=== PATIENT | male | born 1940 | race Caucasian/White ===

== ENCOUNTER 2025-06-03 16:18 | Emergency (ER) | payer MEDICARE, SELFPAY ==
--- OUTSIDE RECORDS SUMMARY | 2025-05-22 08:30 | XMS_ITS | Encounter Summary ---
Author Organization [facility] Address [address] [address] Phone Care Team Providers Care Metalizing Machine Operator Automatic Name Role Phone Star Betancourt MD Primary Care Provider [phone] Reason for Visit * Reason Comments Follow-up Encounter Details Date Type Department Care Team (Latest Contact Info) Description 05/22/2025 8:30 AM PUNCH MOLDER Office Visit [facility] [address] [place] [address] Adelso Mack MD [address] [place] [address] Chronic kidney disease, stage 4 (severe) (HCC) (Primary Dx); Secondary hyperparathyroidism of renal origin (HCC); 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); Hyperkalemia; Anemia in chronic kidney disease; Localized edema; Hypertensive chronic kidney disease, benign, 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, or unspecified Social History Tobacco Use Types Packs/Day Years Used Date Smoking Tobacco: Never Smokeless Tobacco: Never Alcohol Use Standard Drinks/Week Comments Not Currently 0 (1 standard drink = 0.6 oz pur e alcohol) Sex and Gender Information Value Date Recorded Sex Assigned at Not on file Legal Sex Male 2:00 PM EDT Gender Identity Not on file Sexual Orientation Not on file documented as of this encounter Last Filed Vital Signs Vital Sign Reading Time Taken Comments Blood Pressure 124/60 05/22/2025 8:16 AM PUNCH MOLDER Pulse 55 05/22/2025 8:16 AM PUNCH MOLDER Temperature - - Respiratory Rate - - Oxygen Saturation 97% 05/22/2025 8:16 AM PUNCH MOLDER Inhaled Oxygen Concentration - - Weight 89.8 kg (198 lb) 05/22/2025 8:16 AM PUNCH MOLDER Height 165.4 cm (5' 5.12) 05/22/2025 8:16 AM CS T Body Mass Index 32.83 05/22/2025 8:16 AM PUNCH MOLDER documented in this encounter Patient Instructions * Patient Instructions* Case Staples - 05/22/2025 8:30 AM PUNCH MOLDER It was very nice to see you again today. Your kidney function continues to do well and is very stable. 1. Try Lamisil cream (terbinafine) to apply to your feet on a daily basis to see if this may help manage the dryness. 2. I will be back in the [facility] on June 26. documented in this encounter Progress Notes * Adelso Mack MD - 05/22/2025 8:30 AM CST Images from the original note were not included. Patient: Anuel Delgado Date of : 1940 Chart: [id number] PCP: Star Betancourt MD Date of Service: 05/22/2025 Chief Complaint: Anuel Delgado returns in follow-up for CKD stage IV Subjective: Patient returns in follow-up of the above. He was last seen by me in November 2024. He was doing well atthat time and was not experiencing any wounds in his lower extremities. With weight at that time at203 pounds. Underwent echocardiogram in February 2025 with EF of 60-65% with aortic valve calcified with mild stenosis and mild regurgitation but no changes from January 2024 study. On 07 May underwent cystoscopy with TURBT. Biopsy showed noninvasive papillary urothelial carcinoma, high-grade with no involvement of the muscularis propria or in situ. 1 cm tumor seen along thedome of the bladder. Laboratory work April 2025: Sodium 141 Potassium 5.3 Bicarbonate 25 Glucose 219 Calcium 8.6 Creatinine 2.17, eGFR 29 mL/min Hemoglobin 10.1 Hemoglobin A1c 6.8 He reports doing well overall. No recent illnesses or hospitalizations. Tolerating current medications nicely. Has asymmetric, excessive dryness on 1 foot compared to the other. This has been refractory to moisturizers that have been applied. No open wounds or ulcers at this time. Assessment & Plan Problem List Chronic kidney disease, stage 4 (severe) (HCC) - Primary (Chronic) Overview Baseline creatinine in the high ones-twos range. GFR remained stable. Great fluctuation with creatinine between 2015-present. Longstanding, documented albuminuria, first noted in 2011 at 48 mg/g withmost recent value at 125 mg/g from 2017. Anatomically renal ultrasound performed in February 2017 with right kidney at 9.1 cm and left kidney 10.4 cm with absence of hydronephrosis. 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 Historically highly fluctuating GFR based on illnesses. Current Assessment & Plan Stable. eGFR stable overall. Based on compromised GFR, advanced age, hyperdensity for hyperkalemia,etc. he is not a appropriate candidate for RAAS inhibitors, MRA, or SGLT2 inhibitor in my opinion. Continue current cares. Follow-up in 6 months. Relevant Orders Renal function panel Hemoglobin Neoplasm of bladder Overview Per CT scan on 10/20/2022 measured at 4.2 cm per interpreting radiologist. Accompanied red appearing urine and confirmed with a fair amount of blood on urinalysis. 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 Completing intravesical BCG November 2023. Surveillance cystoscopy every 3 months. Current Assessment & Plan Stable. Status post TURBT in April 2025. Surveillance cystoscopy every 3 months afterwards. Ongoing for management and surveillance per urology. Hyperkalemia (Chronic) Overview Historically her high end of normal potassium values. Current Assessment & Plan Stable. Most recent potassium at 5.3. This was also with associated glucose level of 219 which may have contributed somewhat. Follow only. Secondary hyperparathyroidism of renal origin (HCC) (Chronic) Current Assessment & Plan Stable. Calcium in fine shape. Phosphorus will attempt to be obtained at the next visit. Localized edema Current Assessment & Plan Stable. Chronic lower extremity lymphedema, primarily focused around each ankle. No changes. Anemia in chronic kidney disease (Chronic) Current Assessment & Plan Stable. Hemoglobin unchanged in the 10 range. Not a candidate at this time for SHANNA. Hypertensive chronic kidney disease, benign, 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, or unspecified Current Assessment & Plan Stable. Well-managed on current medication regimen. I would not treat any more aggressively in thispatient with frail physiology and greatly advanced age. Return in about 6 months (around 11/19/2025) for Recheck. Adelso Mack MD [facility] The following portions of the patient's chart were reviewed in this encounter and updated as appropriate: Tobacco Allergies Meds Med Hx Surg Hx Fam Hx Review of Systems Cardiovascular: Positive for leg swelling. All other systems reviewed and are negative. 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, or unspecified History of Present Illness Past Medical History: Diagnosis Date Anemia Chronic kidney disease Coronary atherosclerosis of unspecified type of vessel, [place] or graft Diabetes mellitus with renal manifestations, type II or unspecified type, not stated as uncontrolled (HCC) Diabetes mellitus without mention of complication, type II or unspecified type, not stated as uncontrolled (HCC) Essential hypertension Osteoarthrosis, unspecified whether generalized or localized, involving unspecified site Other and unspecified hyperlipidemia Other malignant neoplasm of unspecified site (HCC) Sleep apnea Past Surgical History: Procedure Laterality Date AMPUTATION FOOT / TOE Right BLADDER SURGERY 05/08/2025 Family History Problem Relation Age of Onset Diabetes Mother Cancer Mother Diabetes Father Cancer Father Diabetes Sister Social History Tobacco Use Smoking status: Never Smokeless tobacco: Never Vaping Use Vaping status: Never Used Substance Use Topics Alcohol use: Not Currently Drug use: Never Taking? Provider ascorbic acid (VITAMIN C) 500 MG tablet Carrie Márquez MD Take 500 mg by mouth 1 (one) time each day aspirin (ST KARLA) 81 MG EC tablet Carrie Márquez MD Take 81 mg by mouth once daily with a meal. DO NOT CRUSH OR CHEW. atorvastatin (LIPITOR) 40 MG tablet Carrie Márquez MD Take 40 mg by mouth every night cholecalciferol (VITAMIN D-3) 25 MCG (1000 UT) capsule Carrie Márquez MD Take 1,000 Units by mouth 1 (one) time each day fluticasone (FLONASE) 50 MCG/ACT nasal spray Carrie Márquez MD Administer 2 sprays into each nostril 1 (one) time each day insulin glargine (LANTUS) 100 UNIT/ML injection Carrie Márquez MD Inject 38 Units under the skin every night metoprolol tartrate 25 MG tablet Carrie Márquez MD Take 25 mg by mouth in the morning and 25 mg in the evening. nitroglycerin (NITROSTAT) 0.4 MG SL tablet Carrie Márquez MD Place 1 tablet under the tongue every 5 minutes if needed for Chest Pain. May repeat for total of 3doses, may cause dizziness sildenafil (VIAGRA) 100 MG tablet Carrie Márquez MD TAKE ONE TABLET BY MOUTH EVERY DAY NEEDED FOR ERECTILE DYSFUNCTION; TAKE 30 MIN TO 4 HOURS BEFORE SEXUAL ACTIVITY; MAX 100MG/24HR Vitamin E 180 MG (400 UNIT) capsule Carrie Márquez MD Take 400 Units by mouth in the morning. Allergies Allergen Reactions Oxycodone Nausea And Vomiting and Other (see comments) Hiccups Other Reaction(s): Not available Sulfa Antibiotics Physical Exam BP 124/60 (BP Location: Right upper arm, Patient Position: Sitting, BP Cuff Size: Adult) Pulse 55 Ht 5' 5.12 (1.654 m) Wt 198 lb (89.8 kg) SpO2 97% BMI 32.83 kg/m?? Vitals reviewed. Cardiovascular: Normal rate and regular rhythm. He exhibits edema (1+, chronic edema in the right lower extremity, left lower extremity with trace edema (both chronic conditions)). Pulmonary/Chest: Effort normal and breath sounds normal. Abdominal: Soft. Bowel sounds are normal. Musculoskeletal: Normal range of motion. Skin: Skin is warm and dry. Chemistry and Bone Mineral Lab Units 05/14/25 0831 05/14/25 0734 04/24/25 0000 11/27/24 0800 11/27/24 0705 06/12/24 0811 04/25/24 0759 02/28/24 1217 02/12/24 0549 02/10/24 1056 02/09/24 0548 02/08/24 1712 10/25/23 0757 10/25/23 0000 08/12/23 1035 SODIUM mmol/L -- 141 141 -- 140 137 -- 138 138 < > 137 138 143 < > 142 POTASSIUM mmol/L -- 5.4* 5.3 -- 4.8 5.0 -- 5.4* 4.0 < > 4.0 4.7 5.2* < > 4.9 CHLORIDE mmol/L -- 110 108 -- 107 105 -- 103 -- -- -- 105 108* < > 108* CO2 mmol/L -- 23 25 -- 24 26 -- 22 23 < > -- 23 24 < > 24 ANION GAP -- -- -- -- -- -- -- 13 -- -- -- 10 11 -- 10 MAGNESIUM mg/dL -- -- -- -- -- -- -- -- -- -- 2.0 -- -- -- -- CALCIUM mg/dL -- 8.2* 8.6 -- 8.5* 8.5* -- 8.9 -- -- -- 8.9 8.9 < > 8.9 PHOSPHORUS mg/dL -- -- -- -- 4.4* 3.9 -- -- -- -- -- -- -- -- -- GLUCOSE mg/dL -- 145* 219* -- 156* 278* -- 207* -- -- -- 220* 99 < > 105* ALBUMIN g/dL -- -- -- -- 3.7 3.5* -- -- -- -- -- -- -- -- -- BUN mg/dL -- 42* 39* -- 41* 44* -- 46* -- -- -- 35* 33* < > 45* CREATININE mg/dL -- 2.49* 2.17* -- 2.25* 2.32* -- 2.31* 2.38* < > 2.21* 2.05* 1.93* < >2.06* EGFR mL/min/1.73m2 -- 25* 29* -- 28* 27* -- 27* 26* < > 29* 31* 34* < > 31* HEMOGLOBIN A1C % OF TOTAL HGB 6.8* -- -- 7.5* -- -- 7.2* 8.5* -- -- -- -- 7.4* -- -- < > = values in this interval not displayed. CBC and Iron Studies Lab Units 05/14/25 0734 04/24/25 0000 11/27/24 0705 06/12/24 0811 02/28/24 1217 02/12/24 0549 02/11/24 0552 02/10/24 1056 02/09/24 0548 HEMOGLOBIN g/dL 9.7* 10.1* 10.2* 10.4* 10.1* 10.3* 10.6* 9.8* 9.2* MCV fL -- 95.4 -- -- 93 92 92 94 95 Urine Lab Units 10/25/23 0000 PROT/CREAT RATIO UR 0.8* I have performed a complete review of pertinent lab results. 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 Well-managed on current medication regimen. I would not treat any more aggressively in thispatient with frail physiology and greatly advanced age. * Assessment & Plan Note - Adelso Mack MD - 05/22/2025 8:45 AM CSTAssociated Problem(s): Localized edema Stable. Chronic lower extremity lymphedema, primarily focused around each ankle. No changes. * Assessment & Plan Note - Adelso Mack MD - 05/21/2025 4:43 PM CSTAssociated Problem(s): Anemia in chronic kidney disease Stable. Hemoglobin unchanged in the 10 range. Not a candidate at this time for SHANNA. * Assessment & Plan Note - Adelso Mack MD - 05/21/2025 4:43 PM CSTAssociated Problem(s): Chronic kidney disease, stage 4 (severe) ([facility]) Stable. eGFR stable overall. Based on compromised GFR, advanced age, hyperdensity for hyperkalemia,etc. he is not a appropriate candidate for RAAS inhibitors, MRA, or SGLT2 inhibitor in my opinion. Continue current cares. Follow-up in 6 months. * Assessment & Plan Note - Adelso Mack MD - 05/21/2025 4:42 PM CSTAssociated Problem(s): Hyperkalemia Stable. Most recent potassium at 5.3. This was also with associated glucose level of 219 which may have contributed somewhat. Follow only. * Assessment & Plan Note - Adelso Mack MD - 05/21/2025 4:41 PM CSTAssociated Problem(s): Neoplasm of bladder Stable. Status post TURBT in April 2025. Surveillance cystoscopy every 3 months afterwards. Ongoing for management and surveillance per urology. * Assessment & Plan Note - Adelso Mack MD - 05/21/2025 4:41 PM CSTAssociated Problem(s): Secondary hyperparathyroidism of renal origin (HCC) Stable. Calcium in fine shape. Phosphorus will attempt to be obtained at the next visit. 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
--- OUTSIDE RECORDS SUMMARY | 2025-06-03 16:20 | XMS_ITS | Clinical Summary ---
Author Organization [facility] [place] [place] Address [address] [place] [address] Phone Care Team Providers Care Cancer Registry Coordinator Name Role Phone Star Betancourt MD Primary Care Provider [phone] Allergies Active Allergy Reactions Criticality Noted Date Comments Oxycodone Nausea And Vomiting,Other (see comments) 11/02/2017 Hiccups Other Reaction(s): Not available Sulfa Antibiotics 07/15/2007 Medications insulin glargine (LANTUS) 100 UNIT/ML injection Inject 38 Units under the skin every night 4 Active sildenafil (VIAGRA) 100 MG tablet TAKE ONE TABLET BY MOUTH EVERY DAY NEEDED FOR ERECTILE DYSFUNCTION; TAKE 30 MIN TO 4 HOURS BEFORE SEXUAL ACTIVITY; MAX 100MG/24HR Active Vitamin E 180 MG (400 UNIT) capsule Take 400 Units by mouth in the morning. 3 Active nitroglycerin (NITROSTAT) 0.[address] 1 tablet under the tongue every 5 minutes if needed for Chest Pain. May repeat for total of 3 doses, may cause dizziness 0 Active atorvastatin (LIPITOR) 40 MG tablet Take 40 mg by mouth every night 4 Active ascorbic acid (VITAMIN C) 500 MG tablet Take 500 mg by mouth 1 (one) time each day 3 Active aspirin (ST KARLA) 81 MG EC tablet Take 81 mg by mouth once daily with a meal. DO NOT CRUSH OR CHEW. 8 Active fluticasone (FLONASE) 50 MCG/ACT nasal spray Administer 2 sprays into each nostril 1 (one) time each day 3 Active cholecalcifero l (VITAMIN D-3) 25 MCG (1000 UT) capsule Take 1,000 Units by mouth 1 (one) time each day Active metoprolol tartrate 25 MG tablet Take 25 mg by mouth in the morning and 25 mg in the evening. 5 Active Insulin Lispro, 1 Unit Dial, 100 UNIT/ML solution pen-injector 20 units subcutaneous at start of breakfast meal AND 20 units with evening meal 4 025 Discontin ued(Med List Maintenan ce) metoprolol tartrate (LOPRESSOR) 50 MG tablet Take 25 mg by mouth in the morning and 25 mg in the evening. 3 025 Discontin ued(Med List Maintenan ce) Belmont-3 Fatty Acids (Super Belmont 3 EPA/DHA) 1000 MG capsule Take by mouth. 2 025 Discontin ued(Med List Maintenan ce) albuterol HFA (PROVENTIL HFA;VENTOLIN HFA) 108 (90 Base) MCG/ACT inhaler Inhale 1-2 puffs every 4 (four) hours if needed for wheezing 3 025 Discontin ued(Med List Maintenan ce) Active Problems Problem Noted Date Diagnosed Date Chronic kidney disease, stage 4 (severe) 024 Overview (11/28/2023): Baseline creatinine in the high ones-twos range. GFR remained stable. Great fluctuation with creatinine between 2015-present. Longstanding, documented albuminuria, first noted in 2011 at 48 mg/g with most recent value at 125 mg/g from 2017. Anatomically renal ultrasound performed in February 2017 with right kidney at 9.1 cm and left kidney 10.4 cm with absence of hydronephrosis. 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 Historically highly fluctuating GFR based on illnesses. Assessment & Plan (05/21/2025 4:43 PM ENTREPRENEURSHIP PROGRAM DIRECTOR): Stable. eGFR stable overall. Based on compromised GFR, advanced age, hyperdensity for hyperkalemia, etc. he is not a appropriate candidate for RAAS inhibitors, MRA, or SGLT2 inhibitor in my opinion. Continue current cares. Follow-up in 6 months. Assessment & Plan (12/05/2024 4:00 PM CDT): Stable. GFR remains at his baseline. No electrolyte abnormalities of concern. No evidence of uremic signs or symptoms. Unsafe for RAAS inhibitors, MRA, and SGLT2 inhibitor in my opinion. Continue current cares as we have before. Tentative follow-up in 6 months. Assessment & Plan (06/20/2024 8:53 AM ENTREPRENEURSHIP PROGRAM DIRECTOR): Stable overall. See historical GFR/creatinine values as described above. As noted in the hypertension section, patient is not a safe candidate for RAAS inhibitors or MRA. In addition, based on his clinically proven peripheral vascular disease and poor wound healing, I would refrain from the administration of SGLT2 inhibitor. No indications for preparation for ESRD at this time. No volume related issues. Continue current cares. Will plan to see him again in 6 months. Assessment & Plan (11/29/2023 2:48 PM CDT): Stable GFR. Continue current cares. GFR is too compromised to provide RAAS inhibitors as well as sodium glucose transporter-2 inhibitor class of medications in my opinion. Hyperkalemia 11/28/2023 Overview (11/28/2023): Historically her high end of normal potassium values. Assessment & Plan (05/21/2025 4:42 PM ENTREPRENEURSHIP PROGRAM DIRECTOR): Stable. Most recent potassium at 5.3. This was also with associated glucose level of 219 which may have contributed somewhat. Follow only. Assessment & Plan (12/05/2024 4:01 PM CDT): Stable. Most recent potassium value within normal limits at 4.8. Assessment & Plan (06/20/2024 8:52 AM ENTREPRENEURSHIP PROGRAM DIRECTOR): Stable. See comments in overview above. If becomes problematic, we can certainly consider the addition of low-dose loop diuretic. Keep in mind that the assay for this visit from 12 June had a glucose value of 278 which also impacted the potassium level. Assessment & Plan (11/29/2023 2:47 PM CDT): Stable overall. Low threshold to start low-dose diuretic if this becomes problematic. Secondary hyperparathyroidism of renal origin Assessment & Plan (05/21/2025 4:41 PM ENTREPRENEURSHIP PROGRAM DIRECTOR): Stable. Calcium in fine shape. Phosphorus will attempt to be obtained at the next visit. Assessment & Plan (12/05/2024 4:01 PM CDT): Stable. Both calcium and phosphorus within normal limits. Follow only for the time being. No indications for phosphorus binding at this time. Assessment & Plan (06/20/2024 8:53 AM ENTREPRENEURSHIP PROGRAM DIRECTOR): Stable. Well-managed. Calcium levels are in fine condition as are phosphorus levels. Assessment & Plan (11/29/2023 2:48 PM CDT): Calcium in fine shape. Localized edema 11/28/2023 Assessment & Plan (05/22/2025 8:45 AM ENTREPRENEURSHIP PROGRAM DIRECTOR): Stable. Chronic lower extremity lymphedema, primarily focused around each ankle. No changes. Assessment & Plan (12/07/2024 9:43 AM CDT): Stable. Currently well-managed and at chronic levels. Assessment & Plan (06/20/2024 8:49 AM ENTREPRENEURSHIP PROGRAM DIRECTOR): Stable. Well-controlled edema with right greater than left distribution. Edema typically absent when he awakens in the morning. No indications for initiation of loop diuretic at this time to manage this. Assessment & Plan (11/28/2023 8:55 PM CDT): When last seen edema was present and regulated well below each knee. Anemia in chronic kidney disease 11/28/2023 Assessment & Plan (05/21/2025 4:43 PM ENTREPRENEURSHIP PROGRAM DIRECTOR): Stable. Hemoglobin unchanged in the 10 range. Not a candidate at this time for SHANNA. Assessment & Plan (12/05/2024 4:01 PM CDT): Stable. Hemoglobin at 10.2. No indications for SHANNA at this point in time. Assessment & Plan (06/20/2024 8:51 AM ENTREPRENEURSHIP PROGRAM DIRECTOR): Stable. Hemoglobin unchanged in the tens range. No indications for SHANNA administration at this time. Assessment & Plan (11/29/2023 2:49 PM CDT): Hemoglobin value will be assessed at the next visit. Neoplasm of bladder 11/23/2022 Overview (05/22/2025): Per CT scan on 10/20/2022 measured at 4.2 cm per interpreting radiologist. Accompanied red appearing urine and confirmed with a fair amount of blood on urinalysis. 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 Completing intravesical BCG November 2023. Surveillance cystoscopy every 3 months. Assessment & Plan (05/22/2025 8:45 AM ENTREPRENEURSHIP PROGRAM DIRECTOR): Stable. Status post TURBT in April 2025. Surveillance cystoscopy every 3 months afterwards. Ongoing for management and surveillance per urology. Assessment & Plan (12/05/2024 4:01 PM CDT): Stable. No recurrence of bladder cancer. Otherwise per urologist with screening cystoscopy. Assessment & Plan (06/20/2024 8:52 AM ENTREPRENEURSHIP PROGRAM DIRECTOR): Stable. Patient is cancer free according to a very recent cystoscopy. Otherwise per urology. Assessment & Plan (11/29/2023 2:48 PM CDT): Completing course of intravesical BCG. Per urology. 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 Well-managed on current medication regimen. I would not treat any more aggressively in this patient with frail physiology and greatly advanced age. Assessment & Plan (12/07/2024 9:42 AM CDT): Stable. Excellent management on current medication regimen. Continue. Assessment & Plan (06/20/2024 8:50 AM ENTREPRENEURSHIP PROGRAM DIRECTOR): Stable. Well-controlled. Based on patient's frail physiology, compromised GFR, propensity for hyperkalemia, etc. I would not administer RAAS inhibitors or MRA's in this patient. Continue current medications as ordered. Assessment & Plan (11/29/2023 2:47 PM CDT): Fine shape on current medication regimen. I would not be any more aggressive with his blood pressure. 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, or unspecified 05/03/2025 Results Follow-Up [facility] [address] [place] [id number] Yesenia Madden, JONE 05/03/2025 Orders Only [facility] [address] [place] [phone] [facility] Chronic kidney disease, stage 4 (severe) (HCC) from Last 3 Months Immunizations Immunization Administration Dates Next Due Influenza Vaccine, Quadrival ent, Adjuvanted 04/22/2023,04/21/2022,05/14/2021,2019 Influenza, Trivalent, Adjuvanted 05/14/2025,02/2024 Pfizer SARS-COV-2 05/14/2021,10/02/2020,09/11/19 21 Pfizer SARS-CoV-2 Bivalent 3 0 mcg/0.3 mL 04/21/2022 Pneumococcal Conjugate Pcv 20 04/22/2023 Rsv, Bivalent, Protein Subun it Rsvpref, Diluent Reconstitutd 08/04/2023 Tdap 01/22/2023,12/15/2011 Family History Medical History Relation Comments Cancer Father Diabetes Father Cancer Mother Diabetes Mother Diabetes Sister Relation Status Comments Father Mother Sister Social History Tobacco Use Types Packs/Day Years Used Date Smoking Tobacco: Never Smokeless Tobacco: Never Tobacco Cessation:Counseling Given: Not Answered Alcohol Use Standard Drinks/Week Comments Not Currently 0 (1 standard drink = 0.6 oz pur e alcohol) Sex and Gender Information Value Date Recorded Sex Assigned at Not on file Legal Sex Male 2:00 PM EDT Gender Identity Not on file Sexual Orientation Not on file Last Filed Vital Signs Vital Sign Reading Time Taken Comments Blood Pressure 124/60 05/22/2025 8:16 AM ENTREPRENEURSHIP PROGRAM DIRECTOR Pulse 55 05/22/2025 8:16 AM ENTREPRENEURSHIP PROGRAM DIRECTOR Temperature - - Respiratory Rate - - Oxygen Saturation 97% 05/22/2025 8:16 AM ENTREPRENEURSHIP PROGRAM DIRECTOR Inhaled Oxygen Concentration - - Weight 89.8 kg (198 lb) 05/22/2025 8:16 AM ENTREPRENEURSHIP PROGRAM DIRECTOR Height 165.4 cm (5' 5.12) 05/22/2025 8:16 AM CS T Body Mass Index 32.83 05/22/2025 8:16 AM ENTREPRENEURSHIP PROGRAM DIRECTOR Plan of Treatment Health Maintenance Due Date Last Done Comments Diabetes: Ophthalmology Exam 10/25/2023 Diabetes: Pedal Pulse Checked 10/25/2023 Diabetes: Sensory Foot Exam 10/25/2023 Diabetes: Visual Foot Exam 10/25/2023 Diabetes: Hemoglobin A1C 08/14/2025 025, 11/27/2024, 04/25/2024, Additional history exists Pneumococcal Vaccine: 50+ Years Completed 04/22/2023 Influenza Vaccine Completed 05/14/2025, , 04/22/2023, Additional history exists Hepatitis B Vaccine Aged Out No longe r eligible based on patient's age to complete this topic Procedures Procedure Name Priority Date/Time Associated Diagnosis Comments HEMOGLOBIN Routine 05/14/2025 7:34 AM CDT BASIC METABOLIC PANEL Routine 05/14/2025 7:34 AM CDT HEMOGLOBIN Routine 04/24/2025 Chronic kidney disease, stage 4 (severe) (HCC) BASIC METABOLIC PANEL Routine 04/24/2025 Chronic kidney disease, stage 4 (severe) (HCC) from Last 3 Months Results * (ABNORMAL) Hemoglobin (05/14/2025 7:34 AM CDT) Only the most recent of2 resultswithin the time period is included. Hemoglobin 9.7(L) 13.2 - 17.1 g/dL [facility] 05/14/2025 7:34 AM CDT 05/14/2025 7:34 AM CDT Narrative Resulting Agency Comment Performing Organization Information: Site ID: CB Name: [facility] Address: [address] [place] [phone] Director: Israel Waters Adelso Mack MD LAB BLOOD ORDERABLES Final Resul t [facility] [address] [place] [phone] * (ABNORMAL) Basic Metabolic Panel (05/14/2025 7:34 AM CDT) Only the most recent of2 resultswithin the time period is included. Glucose 145(H) 65 - 99 mg/dL [facility] Comment: Fasting reference interval For someone without known diabetes, a glucose value >125 mg/dL indicates that they may have diabetes and this should be confirmed with a follow-up test. BUN 42(H) 7 - 25 mg/dL [facility] Creatinine 2.49(H) 0.70 - 1.22 mg/dL [facility] eGFR CKD-EPI CR 2020 25(L) > OR = 60 mL/min/1.7 3m2 [facility] BUN/Creatinine Ratio 17 6 - 22 (calc) [facility] Sodium 141 135 - 146 mmol/L [facility] Potassium 5.4(H) 3.5 - 5.3 mmol/L [facility] Chloride 110 98 - 110 mmol/L [facility] Bicarbonate (CO2) 23 20 - 32 mmol/L [facility] Calcium 8.2(L) 8.6 - 10.3 mg/dL [facility] 05/14/2025 7:34 AM CDT 05/14/2025 7:34 AM CDT Narrative Resulting Agency Comment Performing Organization Information: Site ID: CB Name: [facility] Address: [address] [place] [phone] Director: Israel Waters Adelso Mack MD LAB BLOOD ORDERABLES Final Resul t [facility] [address] [place] [phone] from Last 3 Months Insurance [facility] Medicare Care Teams Cancer Registry Coordinator Relationship Specialty Start Date End Date Star Betancourt MD [address] [place] [address] PCP - General Family Medicine 10/26/23
--- OUTSIDE RECORDS SUMMARY | 2025-06-03 16:20 | XMS_ITS | Encounter Summary ---
Author Organization [facility] Address [address] [place] [address] Phone Care Team Providers Care Program Paraprofessional Name Role Phone Star Betancourt MD Primary Care Provider Encounter Details Date Type Department Care Team (Late st Contact Info) Description 11/23/2024 Orders Only [facility] [place] [address] Adelso Mack MD [address] [place] [address] Chronic kidney disease, stage 4 (severe) (HCC) Social History Tobacco Use Types Packs/Day Years [...] on file documented as of this encounter Plan of Treatment Not on file documented as of this encounter Procedures Procedure Name Priority Date/Time Associated Diagnosis Comments HEMOGLOBIN Routine 11/27/2024 7:05 AM CDT Chronic kidney disease, stage 4 (severe) (HCC) RENAL FUNCTION PANEL Routine 11/27/2024 7:05 AM CDT Chronic kidney disease, stage 4 (severe) (HCC) documented in this encounter Results * (ABNORMAL) Hemoglobin (11/27/2024 7:05 AM CDT) Hemoglobin 10.2(L) 13.2 - 17.1 g/dL [facility] Blood specimen (specimen) Venous blood / Unknown 11/27/2024 7:05 AM CDT 11/27/2024 7:05 AM CDT Narrative Resulting Agency Comment Performing Organization Information: Site ID: CB Name: [facility] Address: [address] [place] [phone] Director: Israel Waters Adelso Mack MD LAB BLOOD ORDERABLES Final Resul t [facility] [address] [place] [phone] * (ABNORMAL) Renal function panel (11/27/2024 7:05 AM CDT) Glucose 156(H) 65 - 99 mg/dL [facility] Comment: Fasting reference interval For someone without known diabetes, a glucose value >125 mg/dL indicates that they may have diabetes and this should be confirmed with a follow-up test. BUN 41(H) 7 - 25 mg/dL [facility] Creatinine 2.25(H) 0.70 - 1.22 mg/dL [facility] eGFR CKD-EPI CR 2020 28(L) > OR = 60 mL/min/1.7 3m2 [facility] BUN/Creatinine Ratio 18 6 - 22 (calc) [facility] Sodium 140 135 - 146 mmol/L [facility] Potassium 4.8 3.5 - 5.3 mmol/L [facility] Chloride 107 98 - 110 mmol/L [facility] Bicarbonate (CO2) 24 20 - 32 mmol/L [facility] Calcium 8.5(L) 8.6 - 10.3 mg/dL [facility] Phosphorus 4.4(H) 2.1 - 4.3 mg/dL [facility] Albumin 3.7 3.6 - 5.1 g/dL [facility] Blood specimen (specimen) Venous blood / Unknown 11/27/2024 7:05 AM CDT 11/27/2024 7:05 AM CDT Narrative Resulting Agency Comment Performing Organization Information: Site ID: CB Name: [facility] Address: [address] [place] [phone] Director: Israel Waters Adelso Mack MD LAB BLOOD ORDERABLES Final Resul t [facility] [address] [place] [phone] documented in this encounter Visit Diagnoses Diagnosis Chronic kidney disease, stage 4 (severe) (HCC) documented in this encounter Care Teams Program Paraprofessional Relationship Specialty Start Date End Date Star Betancourt MD [address] [place] [address] PCP - General Family Medicine 10/26/23 documented as of this encounter
--- OUTSIDE RECORDS SUMMARY | 2025-06-03 16:20 | XMS_ITS | Encounter Summary ---
Author Organization [facility] [place] Address [address] [place] [address] Phone Care Team Providers Care Linux Admin Engineer Name Role Phone Star Betancourt MD Primary Care Provider [phone] Encounter Details Date Type Department Care Team (Late st Contact Info) Description 05/03/2025 Orders Only [facility] [place] [address] [place] [phone] [facility] [address] [place] [address] Chronic kidney disease, stage 4 (severe) (HCC) [...] in this encounter Results * (ABNORMAL) Hemoglobin (05/14/2025 7:34 AM CDT) Hemoglobin 9.7(L) 13.2 - 17.1 g/dL [facility] 05/14/2025 7:34 AM CDT 05/14/2025 7:34 AM CDT Narrative Resulting Agency Comment Performing Organization Information: Site ID: CB Name: [facility] Address: [address] [place] [phone] Director: Israel Waters Adelso Mack MD LAB BLOOD ORDERABLES Final Resul t [facility] [address] [place] [phone] * (ABNORMAL) Basic Metabolic Panel (05/14/2025 7:34 AM CDT) Pathologist [facility] Glucose 145(H) 65 - 99 mg/dL [facility] Comment: Fasting reference interval For [...] Performing Organization Information: Site ID: CB Name: [facility] Address: [address] [place] [phone] Director: Israel Waters us Adelso Mack MD LAB BLOOD ORDERABLES Final Resul t Performing Organization Address [facility] de Phone Number [facility] [address] [place] [phone] * (ABNORMAL) Hemoglobin (04/24/2025) Hemoglobin 10.1(L) g/dL [facility] MCV 95.4 fL [facility] Blood Venous blood / Unknown 04/24/2025 us Adelso Mack MD LAB BLOOD ORDERABLES Final Resul t Performing Organization Address [facility] de Phone Number [facility] * (ABNORMAL) Basic metabolic panel (04/24/2025) Sodium 141 mEq/L [facility] Potassium 5.3 mEq/L [facility] Chloride 108 [facility] Carbon Dioxide 25 mmol/L [facility] Calcium 8.6 mg/dL [facility] BUN 39(H) mg/dL [facility] Creatinine 2.17(H) mg/dL [facility] Glucose 219(H) mg/dL [facility] eGFR 29(L) [facility] Anion Gap 8 [facility] Blood Venous blood / Unknown 04/24/2025 us Adelso Mack MD LAB BLOOD ORDERABLES Final Resul t Performing Organization Address [facility] Co de Phone Number [facility] documented in this encounter Visit Diagnoses Diagnosis Chronic kidney disease, stage 4 (severe) (HCC) documented in this encounter Care Teams Linux Admin Engineer Relationship Specialty Start Date End Date Star Betancourt MD [address] [place] [address] PCP - General Family Medicine 10/26/23 documented as of this encounter
--- OUTSIDE RECORDS SUMMARY | 2025-06-03 16:20 | XMS_ITS | Clinical Summary ---
Author Organization [facility] Address [address] [place] [address] Care Team Providers Care Customer Service Specialist Name Role Phone Star Betancourt MD Primary Care Provider Adelso Mack MD Unavailable [phone] [place] Unavailable Unavailable Allergies Active Allergy Reactions Criticality Noted Date Comments Oxycodone Nausea And Vomiting,*Unknown 11/02/2017 Hiccups Sulfa (Sulfonamide Antibiotics) 07/15/2007 Medications ASPIRIN 81 MG TAB, DELAYED RELEASE Take 81 mg by mouth at bedtime. DO NOT CRUSH OR CHEW. 0 03/02/20 08 Active ascorbic acid (VITAMIN C) 500 mg tablet Take 1 tablet by mouth once daily. 0 03/23/20 13 Active vitamin e 400 unit capsule Take 400 units by mouth once daily. 400 units = 180 mg vitamin E 0 03/23/20 13 Active CPAPIndications:O bstructive sleep apnea CPAP machine for home use at pressure: 5-17 CM H20 , Heated humidifier x 1, Humidifier chamber x 1, Full face mask with cushion x 1, Heated tubing x 1, Headgear x 1, Filters: Disposable x 1pk & Reusable x 1pk, Length of Need: 99 months, Frequency of use: Daily 1 Device 11 10/19/19 19 Active nitroglycerin (NITROSTAT) 0.4 mg sublingual tabletIndications :Abnormal stress test Place 1 tablet under the tongue every 5 minutes if needed for Chest Pain. May repeat for total of 3 doses, may cause dizziness 25 tablet 3 06/04/20 20 Active Blood-Glucose Meter (OneTouch Verio IQ Meter)Indications :Type 2 diabetes mellitus with complication, without long-term current use of insulin (HC) Dispense glucose meter, test strips and lancets covered by the patient insurance. Test 3 times daily. E11.9 NIDDM type II 1 Each 08/21/19 22 Active blood sugar diagnostic (OneTouch Verio test strips) stripIndications: Type 2 diabetes mellitus with complication, without long-term current use of insulin (HC) Test 3 times daily. Dispense item covered by pt ins. E11.9 NIDDM type II 300 Each 3 08/21/19 22 Active lancetsIndication s:Type 2 diabetes mellitus with complication, without long-term current use of insulin (HC) Test 3 times daily. Dispense item covered by pt ins. E11.9 NIDDM type II 300 Each 3 08/21/19 22 Active Xnhoo-3-[id number]-EPA-F jacoby Oil (Fish OiL) 1,000 mg (120 mg-180 mg) cap Take 1 Capsule by mouth once daily. 0 05/11/20 22 Active Insulin [place], Disposable, (Sabrina Pen Needle) 32 gauge x 5/32Indications: Diabetes mellitus type 2 with complications (HC) As directed. To use with insulin once daily 100 Each 3 06/16/20 22 Active cholecalciferol, Vitamin D3, 2,000 unit tablet Take 2,000 units by mouth once daily. Active FreeStyle Estephanie 2 ReaderIndications :Type 2 diabetes mellitus with complication, without long-term current use of insulin (HC) To be used to read blood sugars per tobacco educator's directions. 1 Each 11/04/19 23 Active FreeStyle Estephanie 2 SensorIndications :Type 2 diabetes mellitus with complication, without long-term current use of insulin (HC) To be used to read blood sugars per tobacco educator's directions. Change each sensor every 14 days 6 Each 4 11/04/19 23 Active albuterol HFA (PRO-AIR; VENTOLIN; PROVENTIL) 90 mcg/actuation inhalerIndication s:Wheezing Inhale 1-2 Puffs by mouth every 4 hours if needed for Wheezing. 1 Each 1 04/22/20 23 Active ferrous sulfate, 65 mg elemental, tablet Take 325 mg by mouth two times daily. 07/27/19 24 Active insulin aspart, U-100, (NOVOLOG FLEXPEN) 100 unit/mL (3 mL) penIndications:Ty pe 2 diabetes mellitus with complication, without long-term current use of insulin (HC) 15 units with breakfast and 20 units with supper 15 mL 3 02/28/20 24 Active insulin lispro, U-100, (HUMALOG KWIKPEN; ADMELOG SOLOSTAR) 100 unit/mL inpn penIndications:Ty pe 2 diabetes mellitus with complication, without long-term current use of insulin (HC) 15 units with breakfast and 20 units with supper Product desired: HUMALOG KWIKPEN 15 mL 1 03/03/20 24 Active ketoconazole 2 % creamIndications: Tinea pedis of both feet Apply topically to affected area(s) once daily. 30 g 04/19/20 24 Active atorvastatin 40 mg tabletIndications :Mixed hyperlipidemia Take 1 Tablet (40 mg) by mouth at bedtime. 90 Tablet 3 11/28/19 25 Active durable medical equipment (DME)Indications: Skin maceration,Follow -up examination after orthopedic surgery [phone] Squared Toe Post Op Shoe, Large 1 Each 03/01/20 25 Active blood sugar diagnostic (Blood Glucose Test) stripIndications: Diabetes mellitus type 2 with complications (HC) Test 3 times per day. 300 Each 3 03/11/20 25 Active blood-glucose meterIndications: Diabetes mellitus type 2 with complications (HC) Dispense meter covered by pts insurance. 1 Each 03/09/20 25 Active metoprolol tartrate (LOPRESSOR) 25 mg tabletIndications :HTN (hypertension) Take 1 Tablet (25 mg) by mouth two times daily. 180 Tablet 3 05/14/20 25 Active insulin glargine (U-100) (Lantus Solostar U-100 Insulin) 100 unit/mL (3 mL) penIndications:Ty pe 2 diabetes mellitus with complication, without long-term current use of insulin (HC) Inject 38 units subcutaneous before bedtime. 60 mL 3 05/14/20 25 Active insulin glargine, U-100, (Lantus Solostar U-100 Insulin) 100 unit/mL (3 mL) penIndications:Ty pe 2 diabetes mellitus with complication, without long-term current use of insulin (HC) Inject 46 units subcutaneous before bedtime. 60 mL 3 02/28/20 24 Discontinu ed(Reorder (E-cancel not sent)) metoprolol tartrate (LOPRESSOR) 50 mg tabletIndications :HTN (hypertension) Take 0.5 Tablets (25 mg) by mouth two times daily. 90 Tablet 3 04/25/20 24 Discontinu ed(Reorder (E-cancel not sent)) fluticasone (50 mcg per actuation) nasal solution (FLONASE)Indicati ons:Allergic rhinitis due to pollen, unspecified seasonality Inhale 2 Sprays in both nostrils once daily if needed for Rhinitis. 16 g 3 05/14/20 Discontinu ed(*Patien t states no longer taking) phenazopyridine (PYRIDIUM) 200 mg tabletIndications :Malignant neoplasm of urinary bladder, unspecified site (HC) Take 1 Tablet (200 mg) by mouth three times daily for 3 days. 9 Tablet 5 4:36 PM CDT 05/07/20 ciprofloxacin (CIPRO) 500 mg tabletIndications :Malignant neoplasm of urinary bladder, unspecified site (HC) Take 1 Tablet (500 mg) by mouth two times daily before meals for 3 days. 6 Tablet 05/07/20 025 Active Problems Problem Noted Date Diagnosed Date Malignant neoplasm of urinary bladder, unspecifi ed site 11/27/2024 Morbid (severe) obesity due to excess calories 0 11/27/2024 Depression, recurrent 02/28/2024 Diabetic ulcer of toe of rig ht foot associated with type 2 diabetes mellitus, with bone involvement without evidence of necrosis 02/12/2024 Osteomyelitis of great toe 02/08/2024 Secondary hyperparathyroidism of renal origin Overview (02/08/2024): Last Assessment & Plan: Calcium in fine shape. Bladder tumor; High grade non-invasive UCC 3 11/23/2022 Overview (11/23/2022): Recheck scope January 2023 Chronic kidney disease (CKD), stage IV (severe) 10/01/2022 Unstable gait 04/21/2022 History of anemia due to chronic kidney disease 04/21/2022 Obesity 04/21/2022 Vitamin B12 deficiency 04/21/2022 Bilateral lower extremity edema 09/25/2020 Essential hypertension 06/25/2020 Coronary artery disease invo lving chitimacha coronary artery of chitimacha heart without angina pectoris 08/10/2018 [place]IDSON 11/15/2001, AHI 91 07/15/2016 Diabetic retinopathy 06/04/2014 Mixed hyperlipidemia 11/18/2010 Resolved Problems Problem Noted Date Diagnosed Date Resolved Date Acute on chronic heart failu re with preserved ejection fraction (HFpEF) 02/12/2024 04/25/2024 Streptococcal bacteremia 02/12/202402/2024 Diabetes mellitus type 2, un controlled, with complications 09/04/2020 11/27/2024 CKD (chronic kidney disease) stage 3, GFR 30-59 ml/min 10/13/2016 10/20/2022 Adenomatous colon polyp 05/15/2013 04/0 10/2021 Overview (08/16/2018): Colonoscopy 04/2013 polyp repeat in 5 years Colonoscopy 07/2018 polyp, repeat in 5 years Olecranon bursitis 05/02/2012 2 Type 2 diabetes mellitus wit h complication, without long-term current use of insulin 06/12/2002 09/04/2020 Encounters Date Type Department Care Team Description 05/15/2025 Telephone [facility] [address] [place] [address] Star Betancourt MD Results 05/14/2025 8:00 AM CDT Office Visit [facility] [address] [place] [address] Star Betancourt MD Diabetes (Follow up) 05/14/2025 Travel 05/07/2025 2:57 PM CDT Anesthesia Event [facility] [address] [place] [address] Juanita Keenan, Terra Mcallister, PAINT LINE SUPERVISOR Student 05/07/2025 2:45 PM CDT - 05/07/2025 4:13 PM CDT Surgery [facility] [address] [place] [address] Sukhi Paredes MD CYSTOSCOPY RESECTION TRANSURETHRA BLADDER TUMOR WITH FULGURATION 05/07/2025 11:28 AM CDT - 05/07/2025 5:23 PM CDT Hospital Encounter [facility] [address] [place] [address] Sukhi Paredes MD Malignant neoplasm of urinary bladder, unspecified site (HC) (Primary Dx) Discharge Disposition: Home Self Care 05/07/2025 Travel 04/24/2025 10:00 AM CDT Office Visit [facility] [address] [place] [address] Jt Rae MD Follow Up (Echo 03/14/25) 04/24/2025 8:35 AM CDT Office Visit [facility] [address] [place] [address] Audrey Clinton MD Preoperative Exam ( Pre op / bladder surgery / 05/07 / abbot [facility] / [facility]//) 04/24/2025 Travel 04/19/2025 Orders Only [facility] Scanner 1 scan: (1-Ord) [facility], CYSTOSCOPY, 04/19/2025 04/12/2025 8:00 AM CDT Office Visit [facility] [address] [place] [address] Clarence Palmer, DPM Follow Up (Right foot) 04/12/2025 Travel 03/15/2025 Telephone [facility] [address] [place] [address] Eva Pineda MD Results (Echo) 03/14/2025 2:00 PM CDT Ancillary Procedure [facility] [address] [place] [address] 03/14/2025 Travel 03/09/2025 Telephone [facility] [address] [place] [address] Star Betancourt MD Refill Request (New glucometer) 03/09/2025 Refill [facility] [address] [place] [address] Star Betancourt MD Refill Request (Accu-Chek Guide Test Strp, Glucometer ) from Last 3 Months Immunizations Immunization Administration Dates Next Due Amb Influenza, Inact (High-d ose) (Flu Clinic Only) 05/10/2014 COVID-19 vaccine (Pfizer-Bio NTech 30mcg/0.3mL) 12YO+ BIVALENT PF, MDV 04/21/2022 COVID-19 vaccine (Pfizer-Bio NTech 30mcg/0.3mL) PF, MDV 05/14/2021,10/02/2020,09/11/2020 Influenza Virus, Unspecified 05/23/2021 Influenza, High-dose Inactivated 06/12/2016,01/2015,05/10/2014 Influenza, IIV3 (Age 6-35 mos) 05/28/2011 Influenza, IIV3 (Age >=3 years) 04/13/20 13,06/24/2012,05/28/2011,06/27,03/27/2009,04/13/2008 Influenza, Inactivated AIIV4 (Age 65+ Years) Preserv Free 04/22/2023,04/21/2022,05/14/2021,04/26 Influenza, Inactivated IIV3 (Age 65+ Years) Preserv Free 05/14/2025,04/25/2024,04/26/2018,08/06 Pneumococcal Conj 20-valent (Prevnar 20) 04/22/2023 Pneumococcal Poly,23-Valent (Pneumovax) 03/27/2009 Pneumococcal conj 13-Valent (Prevnar 13) 06/04/2014 RSV, Bivalent Vaccine Recons tituted (Abrysvo 120MCG/0.5mL) 08/04/2023 Td (Age >=7 Years) 08/27/2003 Tdap 01/22/2023,12/15/2011 Family History Medical History Relation Name Comments Other Father lymphoma Cancer-colon Mother Diabetes Sister Anesthesia Problem No Family History Relation Name Status Comments Father Mother Sister Social History Tobacco Use Types Packs/Day Years Used Date Smoking Tobacco: Never Smokeless Tobacco: Never Tobacco Cessation:Counseling Given: No Alcohol Use Standard Drinks/Week Comments Yes 0 (1 standard drink = 0.6 oz pur e alcohol) 1 per month PHQ-2 Answer Date Recorded PHQ-2 TOTAL SCORE 0 11/27/2024 Social Connections Answer Date Recorded Do you often feel lonely or isolated from those around you? 0 04/24/2025 Alcohol Use Answer Date Recorded How often do you have a drink containing alcohol ? 0 05/14/2025 Average Number of Drinks Not on file 025 Frequency of Binge Drinking Not on file 04/19 Financial Resource Strain Answer Date R ecorded Difficulty of Paying Living Expenses 3 04/24/2025 Difficulty of Paying Living Expenses Not on file 04/24/2025 Food Insecurity Answer Date Recorded Do you worry your food will run out before you are able to buy more? 1 04/24/2025 Transportation Needs Answer Date Record ed Does lack of transportation keep you from medica l appointments? 1 04/24/2025 Does lack of transportation keep you from work, meetings or getting things that you need? 1 04/24/2025 Housing Stability Answer Date Recorded What is your housing situation today? 1 04/24/2025 Interpersonal Safety Answer Date Record ed Are you being hit, kicked, p ushed or yelled at (see row info)? No 02/08/2024 Interpersonal Safety Abuse 12 - 18 Not on file 02/08/2024 Interpersonal Safety Ambulatory Vulnerability No t on file 02/08/2024 Utilities Answer Date Recorded Do you have trouble paying f or utilities (for example, heat, electricity, water, phone)? 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 Not on file Not on file Obstetrics History Last Filed Vital Signs Vital Sign Reading Time Taken Comments Blood Pressure 125/58 05/14/2025 7:56 AM CDT Pulse 54 05/14/2025 7:56 AM CDT Temperature 36.5 C (97.7 F) 05/07/2025 3:30 PM CDT Respiratory Rate 16 05/07/2025 5:15 PM CDT Oxygen Saturation 98% 05/14/2025 7:56 AM CDT Inhaled Oxygen Concentration - - Weight 89.5 kg (197 lb 6.4 oz) 05/14/2025 7:56 A M CDT Height 152.4 cm (5') 05/07/2025 12:21 PM CDT Body Mass Index 38.55 05/07/2025 12:21 PM CDT Plan of Treatment Upcoming Encounters Date Type Department Care Team (Late st Contact Info) Description 07/05/2025 8:30 AM AUXILIARY EQUIPMENT TENDER Office Visit [facility] [address] [address] Clarence Palmer DPM [address] [place] [address] 11/28/2025 8:00 AM CDT Office Visit [facility] [address] [place] [address] Star Betancourt MD [address] [place] [address] Health Maintenance Due Date Last Done Comments Zoster (shingles) series for age 50+ (1 of 2) 12/16/1958 BMI (ht and wt on same day) for age 18+ 11/27/2025 11/27/2024, 10/25/2023, 03/09/2023, Additional history exists Depression screening for age 12+ 11/27/2025 11/27/2024, 10/25/2023, 10/25/2023, Additional history exists Medicare Wellness for age 65+ 11/28/2025 11/27/2024, 10/25/2023, 04/21/2022, Additional history exists Tetanus booster 01/22/2033 01/22/2023, 11/17, 08/27/2003 Pneumococcal series for age 50+ Completed 04/22/2023, 06/04/2014, 03/27/2009 RSV vaccine for adults or Completed 08/04/2023 Influenza Vaccine Completed 05/14/2025, , 04/22/2023, Additional history exists Hepatitis B series for 19+ Aged Out N o longer eligible based on patient's age to complete this topic Procedures Procedure Name Priority Date/Time Associated Diagnosis Comments VITAMIN B12 Routine 05/14/2025 8:31 AM CDT B12 deficiency HEMOGLOBIN A1C MONITORING (POCT) Routine 05/14/2025 8:31 AM CDT Diabetes mellitus type 2 with complications (HC) LIPID PANEL W REFLEX MEASURED LDL Routine 05/14/2025 8:31 AM CDT Mixed hyperlipidemia GLUCOSE METER Timed 05/07/2025 3:36 PM CDT PATH TISSUE EXAM Today 05/07/2025 3:11 PM CDT SUPRAGLOTTIC-LMA Routine 05/07/2025 3:10 PM CDT CYSTOSCOPY RESECTION TRANSURETHRA BLADDER TUMOR Tier 2: within 30 days 05/07/2025 2:38 PM CDT MALIGNANT NEOPLASM OF URINARY BLADDER GLUCOSE METER Timed 05/07/2025 12:29 PM CDT SCAN-CARDIAC STRIP 05/07/2025 12:00 AM CDT CBC WITH AUTO DIFFERENTIAL Routine 04/24/2025 9:11 AM CDT Pre-op exam BASIC METABOLIC PANEL Routine 04/24/2025 9:11 AM CDT Pre-op exam CBC WITH AUTO DIFFERENTIAL Routine 04/24/2025 9:11 AM CDT Pre-op exam SCAN-OPERATIVE/PROC EDURE REPORT 04/19/2025 12:00 AM CDT ECHO TTE COMPLETE W CONTRAST Routine 03/14/2025 2:23 PM CDT Arteriosclerotic heart disease from Last 3 Months Results * (ABNORMAL) LIPID PANEL W REFLEX MEASURED LDL (05/14/2025 8:31 AM CDT) CHOLESTEROL, TOTAL 110 <200 mg/dL 05/15/2025 3:42 AM CDT [facility] TRIGLYCERIDES 176(H) <150 mg/dL 05/15/2025 3:42 AM CDT [facility] HDL CHOLESTEROL 34(L) > OR = 40 mg/dL 05/15/2025 3:42 AM CDT [facility] NON HDL CHOLESTEROL 76 <130 mg/dL (calc) 05/15/2025 3:42 AM CDT [facility] Comment: For patients with diabetes plus 1 major ASCVD risk factor, treating to a non-HDL-C goal of <100 mg/dL (LDL-C of <70 mg/dL) is considered a therapeutic option. CHOL/HDLC RATIO 3.2 <5.0 (calc) 05/15/2025 3:42 AM CDT [facility] LDL-CHOLESTEROL 51 mg/dL (calc) 05/15/2025 3:42 AM CDT [facility] Comment: Reference range: <100 Desirable range <100 mg/dL for primary prevention; <70 mg/dL for patients with CHD or diabetic patients with > or = 2 CHD risk factors. LDL-C is now calculated using the Barber-Patrick calculation, which is a validated novel method providing better accuracy than the Friedewald equation in the estimation of LDL-C. Barber SS et al. BLAS. 2013;310(19): 8154-0288 (http://education.Peerflix.Portable Internet/faq/SVL464) Blood BLOOD SPECIMEN / Unknown [facility] / Unknown 05/14/2025 8:31 AM CDT 05/14/2025 8:31 AM CDT us Star Betancourt MD CHEMISTRY Final Result [facility] [address] [place] [address], * (ABNORMAL) HEMOGLOBIN A1C MONITORING (POCT) (05/14/2025 8:31 AM CDT) Pathologist [facility] POC HEMOGLOBIN A1C 6.8(H) <6.0 % OF TOTAL HGB 05/14/2025 8:47 AM CDT [facility] Comment: Any point of care results exhibiting inconsistency with the patient's clinical status should be repeated using a different testing method. Blood BLOOD SPECIMEN / Unknown [facility] / Unknown 05/14/2025 8:31 AM CDT 05/14/2025 8:31 AM CDT Star Betancourt MD CHEMISTRY Final Result Performing Organization Address City/[facility]/ZIP Co de Phone Number [facility] [address] [address], [place] [phone] [place] [address], [place] [phone] * VITAMIN B12 (05/14/2025 8:31 AM CDT) [facility] VITAMIN B12 497 200 - 1100 pg/mL 05/15/2025 6:05 AM CDT [facility] Blood BLOOD SPECIMEN / Unknown [facility] / Unknown 05/14/2025 8:31 AM CDT 05/14/2025 8:31 AM CDT Star Betancourt MD CHEMISTRY Final Result [facility] [address] [address], [place] [phone] * GLUCOSE METER (05/07/2025 3:36 PM CDT) Only the most recent of2 resultswithin the time period is included. Pathologist [facility] GLUCOSE METER 80 65 - 100 mg/dL 05/07/2025 3:50 PM CDT [facility] Blood BLOOD SPECIMEN / Unknown 05/07/2025 3:36 PM CDT 05/07/2025 3:50 PM CDT us Sukhi Paredes MD CHEMISTRY Final Res ult [facility] [address] [place] [address], [place] * PATH TISSUE EXAM (05/07/2025 3:11 PM CDT) Case Report Pathology Report Case: [id number] Authorizing Provider: Sukhi Paredes MD Collected: 05/07/2025 1511 Ordering Location: [facility] Received: 05/07/2025 1525 Hospital Pathologist: Israel Marcial MD Specimen: Bladder TUR, Bladder Tumor 05/09/2025 10:36 AM CDT [facility] Final Diagnosis A) URINARY BLADDER, DOME, TRANSURETHRAL RESECTION: 1. Non-invasive papillary urothelial carcinoma, high grade 2. Muscularis propria: Absent 3. Associated carcinoma in situ: Absent 05/09/2025 10:36 AM CDT [facility] at 1036 CDT Clinical Information History of noninvasive high-grade papillary urothelial carcinoma Procedure findings: 1 cm papillary tumor along the dome 05/09/2025 10:36 AM CDT [facility] Gross Description A) Received fresh, labeled with the patient's name and bladder tumor, are two pale joy mucosal tissues averaging 0.5 cm in greatest dimension, which are entirely submitted in one cassette. Time and date in formalin: 1530 on 05/07/2025 STN 05/07/2025 05/09/2025 10:36 AM CDT [facility] Microscopic Description The final diagnosis is based on microscopic examination of appropriate sections of all specimens. 05/09/2025 10:36 AM CDT [facility] Additional Information Interpreted at [facility] - [address], [place] [address] 05/09/2025 10:36 AM CDT [facility] Tissue (Bladder TUR) 05/07/2025 3:11 PM CDT 05/07/2025 3:25 PM CDT Sukhi Paredes MD PATHOLOGY/CYTOLOGY Final Result [facility] [address] [place] [address], [place] * Supraglottic (05/07/2025 3:10 PM CDT) Narrative Juanita Keenan CRNA - 05/07/2025 3:10 PM CDT Juanita Keenan CRNA 05/07/2025 3:10 PM Procedure: Supraglottic Patient location during procedure: OR Supraglottic Airway Properties Mask Ventilation: easy Type: i-gel Tube Size: 5 Insertion Attempts: 1 Placement Verification: auscultation and CO2 detection Assessment Assessment: atraumatic and dentition unchanged Juanita Keenan CRNA ANESTHESIA PX NOTE ORD ERABLES Final Result * SCAN-CARDIAC STRIP (05/07/2025 12:00 AM CDT) Narrative 05/07/2025 12:00 AM CDT Ordered by an unspecified provider. Other Clinical Staff OTHER Final Resul t * (ABNORMAL) CBC WITH AUTO DIFFERENTIAL (04/24/2025 9:11 AM CDT) WHITE BLOOD CELL COUNT 6.7 3.8 - 10.8 Thousand/ uL 04/25/2025 3:22 AM CDT [facility] RED BLOOD CELL COUNT 3.27(L) 4.20 - 5.80 Million/u L 04/25/2025 3:22 AM CDT [facility] HEMOGLOBIN 10.1(L) 13.2 - 17.1 g/dL 04/25/2025 3:22 AM CDT [facility] HEMATOCRIT 31.2(L) 38.5 - 50.0 % 04/25/2025 3:22 AM CDT [facility] MCV 95.4 80.0 - 100.0 fL 04/25/2025 3:22 AM CDT [facility] MCH 30.9 27.0 - 33.0 pg 04/25/2025 3:22 AM CDT [facility] MCHC 32.4 32.0 - 36.0 g/dL 04/25/2025 3:22 AM CDT [facility] Comment: For adults, a slight decrease in the calculated MCHC value (in the range of 30 to 32 g/dL) is most likely not clinically significant; however, it should be interpreted with caution in correlation with other red cell parameters and the patient's clinical condition. RDW 13.7 11.0 - 15.0 % 04/25/2025 3:22 AM CDT [facility] PLATELET COUNT 194 140 - 400 Thousand/ uL 04/25/2025 3:22 AM CDT [facility] MPV 11.1 7.5 - 12.5 fL 04/25/2025 3:22 AM CDT [facility] NEUTROPHILS 68.2 % 04/25/2025 3:22 AM CDT [facility] LYMPHOCYTES 19.9 % 04/25/2025 3:22 AM CDT [facility] MONOCYTES 8.8 % 04/25/2025 3:22 AM CDT [facility] EOSINOPHILS 2.5 % 04/25/2025 3:22 AM CDT [facility] BASOPHILS 0.6 % 04/25/2025 3:22 AM CDT [facility] ABSOLUTE NEUTROPHILS 4569 1500 - 7800 cells/uL 04/25/2025 3:22 AM CDT [facility] ABSOLUTE LYMPHOCYTES 1333 850 - 3900 cells/uL 04/25/2025 3:22 AM CDT [facility] ABSOLUTE MONOCYTES 590 200 - 950 cells/uL 04/25/2025 3:22 AM CDT [facility] ABSOLUTE EOSINOPHILS 168 15 - 500 cells/uL 04/25/2025 3:22 AM CDT [facility] ABSOLUTE BASOPHILS 40 0 - 200 cells/uL 04/25/2025 3:22 AM CDT [facility] Blood BLOOD SPECIMEN / Unknown [facility] / Unknown 04/24/2025 9:11 AM CDT 04/24/2025 9:11 AM CDT us Audrey Clinton MD HEMATOLOGY Fi nal Result [facility] [place] [address], * (ABNORMAL) BASIC METABOLIC PANEL (04/24/2025 9:11 AM CDT) SODIUM 141 135 - 146 mmol/L 04/25/2025 4:04 AM CDT [facility] POTASSIUM 5.3 3.5 - 5.3 mmol/L 04/25/2025 4:04 AM CDT [facility] CARBON DIOXIDE 25 20 - 32 mmol/L 04/25/2025 4:04 AM CDT [facility] GLUCOSE 219(H) 65 - 99 mg/dL 04/25/2025 4:04 AM CDT [facility] Comment: Fasting reference interval For someone without known diabetes, a glucose value >125 mg/dL indicates that they may have diabetes and this should be confirmed with a follow-up test. CALCIUM 8.6 8.6 - 10.3 mg/dL 04/25/2025 4:04 AM CDT [facility] CREATININE 2.17(H) 0.70 - 1.22 mg/dL 04/25/2025 4:04 AM CDT [facility] BUN/CREATININE RATIO 18 6 - 22 (calc) 04/25/2025 4:04 AM CDT [facility] EGFR 29(L) > OR = 60 mL/min/1. 73m2 04/25/2025 4:04 AM CDT [facility] UREA NITROGEN (BUN) 39(H) 7 - 25 mg/dL 04/25/2025 4:04 AM CDT [facility] ELECTROLYTE BALANCE 8 7 - 17 mmol/L (calc) 04/25/2025 4:04 AM CDT [facility] CHLORIDE 108 98 - 110 mmol/L 04/25/2025 4:04 AM CDT [facility] Blood BLOOD SPECIMEN / Unknown [facility] / Unknown 04/24/2025 9:11 AM CDT 04/24/2025 9:11 AM CDT us Audrey Clinton MD CHEMISTRY Fi nal Result [facility] [address] [place] [address], * SCAN-OPERATIVE/PROCEDURE REPORT (04/19/2025 12:00 AM CDT) us Scanner OTHER Final Result * ECHO TTE COMPLETE W CONTRAST (03/14/2025 2:23 PM CDT) AORTIC VALVE MEAN PG 15 mmHg EJECTION FRACTION 54 % LVEDD 4.2 cm EJECTION FRACTION 60 - 65% Anatomical Region Laterality Modality Ultrasound 03/14/2025 1:49 PM CDT Narrative 03/14/2025 3:09 PM CDT ECHOCARDIOGRAM CONCHIS DELGADO : 1940 84 years Study Date: 03/14/2025 1:49:52 PM Gender: M BP: 151/71 mmHg Height: 163.00 cm BSA: 1.95 m Weight: 90.00 kg Tech: MARITZA Referring MD: EVA PINEDA Site: [facility] Reading Location: Mobile-OP Patient Location: Outpatient. Procedure: 2D w/ Contrast, Spectral Doppler and Color Doppler. Indication for study: Arteriosclerotic heart disease Cardiac Rhythm: Regular.Study quality: Fair. Final Impressions: 1. Normal LV size, normal wall thickness, normal global systolic function with an estimated EF of 60 - 65%. 2. Right ventricular cavity size is normal, global systolic RV function is normal. 3. The aortic valve is trileaflet and calcified, mild stenosis and mild regurgitation. Comparison Compared to prior exam of 02/09/24, there has been no significant change. Chamber Sizes and Function Normal left ventricular size, normal wall thickness, normal global systolic function with an estimated EF of 60 - 65%. No resting regional wall motion abnormality visualized. Left atrial size is normal. Left atrial pressure is normal. Right ventricular cavity size is normal, global systolic RV function is normal. RV wall thickness is normal. The right atrium is mildly enlarged. Right atrial volume index is 28 ml/m . Right atrial area is 21 cm . The pulmonary artery is of normal size and origin. The sinus of Valsalva is normal sized. The ascending aorta is normal sized. Valves, RV Pressures and Diastolic Function The aortic valve is trileaflet and calcified, mild stenosis and mild regurgitation. The mitral valve is normal in structure, trace mitral regurgitation. Normal diastolic function for age. The tricuspid valve is normal in structure, mild tricuspid regurgitation. The pulmonic valve is normal. No pulmonary regurgitation. Masses, Effusion, Shunts There is no pericardial effusion. The inferior vena cava is dilated, respiratory size variation greater than 50%. No left to right shunting was detected by limited color flow Doppler interrogation of the interatrial septum. MEASUREMENTS AND CALCULATIONS 2-D Measurements and LV Function: LVID (d) 4.2 cm LV FS% (2D) 29 % LVID (s) 3.0 cm LVOT diameter 2.3 cm IVS (d) 0.8 cm HR 55 bpm LVPW (d) 0.9 cm LA Vol index 31 ml/m2 Ao Sinus 3.5 cm RA Vol index 28 ml/m2 Ao Sinus ULN 4.1 cm * RA area 21 cm Asc Ao 3.4 cm RV Basal Diam 3.2 cm Asc Ao ULN 4.3 cm * LA 4.2 cm * Input age outside of range, reported values correspond to Age = 79 Diastology: Mitral Tissue Doppler E Peak 0.6 m/s e', Septum 0.05 m/s A Peak 0.8 m/s e', Lateral 0.06 m/s E/A 0.8 E/e' Average 11.78 DT 274 msec Aortic Valve: Vmax 2.4 m/s CHANNING (V) 1.56 cm VTI 0.65 m CHANNING (I) 1.65 cm LVOT V max 0.9 m/s Max PG 24 mmHg LVOT VTI 0.25 m Mean PG 15 mmHg SV 107 ml Dim Index 0.39 SV index 55 ml/m CO 5.9 l/min CI 3.0 l/min/m Mitral Valve: MVA 2.8 cm MV P 1/2 79 msec Tricuspid Valve and estimated PA pressures: TAPSE 1.9 cm Contrast documentation: 2 mL ml diluted Definity, lot #[id number], [facility]# [id number] was administered peripherally to enhance visualization of all left ventricular segments. . This study was interpreted by an [facility] accredited facility. Final Procedure Note Kwame Lang MD - 03/14/2025 ECHOCARDIOGRAM CONCHIS DELGADO : 1940 84 years Study Date: 03/14/2025 1:49:52 PM Gender: M BP: 151/71 mmHg Height: 163.00 cm BSA: 1.95 m Weight: 90.00 kg Tech: MARITZA Referring MD: EVA PINEDA Site: [facility] Reading Location: Mobile-OP Patient Location: Outpatient. Procedure: 2D w/ Contrast, Spectral Doppler and Color Doppler. Indication for study: Arteriosclerotic heart disease Cardiac Rhythm: Regular.Study quality: Fair. Final Impressions: 1. Normal LV size, normal wall thickness, normal global systolic functionwith an estimated EF of 60 - 65%. 2. Right ventricular cavity size is normal, global systolic RV functionis normal. 3. The aortic valve is trileaflet and calcified, mild stenosis and mildregurgitation. Comparison Compared to prior exam of 02/09/24, there has been no significant change. Chamber Sizes and Function Normal left ventricular size, normal wall thickness, normal globalsystolic function with an estimated EF of 60 - 65%. No resting regionalwall motion abnormality visualized. Left atrial size is normal. Leftatrial pressure is normal. Right ventricular cavity size is normal, globalsystolic RV function is normal. RV wall thickness is normal. The rightatrium is mildly enlarged. Right atrial volume index is 28 ml/m . Rightatrial area is 21 cm . The pulmonary artery is of normal size and origin.The sinus of Valsalva is normal sized. The ascending aorta is normalsized. Valves, RV Pressures and Diastolic Function The aortic valve is trileaflet and calcified, mild stenosis and mildregurgitation. The mitral valve is normal in structure, trace mitralregurgitation. Normal diastolic function for age. The tricuspid valve isnormal in structure, mild tricuspid regurgitation. The pulmonic valve isnormal. No pulmonary regurgitation. Masses, Effusion, Shunts There is no pericardial effusion. The inferior vena cava is dilated,respiratory size variation greater than 50%. No left to right shunting wasdetected by limited color flow Doppler interrogation of the interatrialseptum. MEASUREMENTS AND CALCULATIONS 2-D Measurements and LV Function: LVID (d) 4.2 cm LV FS% (2D) 29% LVID (s) 3.0 cm LVOT diameter2.3 cm IVS (d) 0.8 cm HR 55bpm LVPW (d) 0.9 cm LA Vol index 31ml/m2 Ao Sinus 3.5 cm RA Vol index 28ml/m2 Ao Sinus ULN 4.1 cm * RA area 21cm Asc Ao 3.4 cm RV Basal Diam3.2 cm Asc Ao ULN 4.3 cm * LA 4.2 cm * Input age outside of range, reported values correspond to Age = 79 Diastology: Mitral Tissue Doppler E Peak 0.6 m/s e', Septum 0.05 m/s A Peak 0.8 m/s e', Lateral 0.06 m/s E/A 0.8 E/e' Average 11.78 DT 274 msec Aortic Valve: Vmax 2.4 m/s CHANNING (V) 1.56 cm VTI 0.65 m CHANNING (I) 1.65 cm LVOT V max 0.9 m/s Max PG 24 mmHg LVOT VTI 0.25 m Mean PG 15 mmHg SV 107 ml Dim Index 0.39 SV index 55 ml/m CO 5.9 l/min CI 3.0 l/min/m Mitral Valve: MVA 2.8 cm MV P 1/2 79 msec Tricuspid Valve and estimated PA pressures: TAPSE 1.9 cm Contrast documentation: 2 mL ml diluted Definity, lot #[id number], [facility]#[id number] was administered peripherally to enhance visualization of allleft ventricular segments. . This study was interpreted by an [facility] accredited facility. 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 Healthcare Directive 11/01/2012 2:10 PM [employer], 10/28/2012 * Full Code (Latest Code Status on File) Date Activated Date Inactivated Comments 05/07/2025 11:29 AM 05/07/2025 7:23 PM Question Answer Comments Code Status Discussion: Not Discussed * Full Code Date Activated Date Inactivated Comments 12/29/2024 7:00 AM 12/29/2024 11:20 AM Question Answer Comments Code Status Discussion: Unable to Assess Preferences, Provider to review later * Full Code Date Activated Date Inactivated Comments 12/29/2024 7:00 AM 12/29/2024 7:00 AM Question Answer Comments Code Status Discussion: Unable to Assess Preferences, Provider to review later * Full Code Date Activated Date Inactivated Comments 02/20/2024 9:08 AM 12/29/2024 6:48 AM * Full Code Date Activated Date Inactivated Comments 02/08/2024 4:45 PM 02/12/2024 2:57 PM Question Answer Comments Code Status Discussion: Reviewed Preferences Care Teams Customer Service Specialist Relationship Specialty Start Date End Date Star Betancourt MD [address] [place] [address] PCP - General Family Practice 08/20/20 Adelso Mack MD [address] [facility] [address] [address] Nephrology 05/21/25 [place], [facility] 05/21/25
--- OUTSIDE RECORDS SUMMARY | 2025-06-03 16:21 | XMS_ITS | Encounter Summary ---
Author Organization [facility] Address [address] [place] [address] Phone Care Team Providers Care Residential Real Estate Agent Name Role Phone Star Betancourt MD Primary Care Provider [phone] Encounter Details Date Type Department Care Team (Late st Contact Info) Description 05/03/2025 Results Follow-Up [facility] [address] [place] [address] Yesenia Madden, RN [address] [place] [address] Social History Tobacco Use Types Packs/Day Years [...] on file documented as of this encounter Visit Diagnoses Not on filedocumented in this encounter Care Teams Residential Real Estate Agent Relationship Specialty Start Date End Date Star Betancourt MD [address] [place] [address] PCP - General Family Medicine 10/26/23 documented as of this encounter
--- OUTSIDE RECORDS SUMMARY | 2025-06-03 16:21 | XMS_ITS | Encounter Summary ---
Author Organization [facility] Address [address] [place] [address] Phone Care Team Providers Care Housekeeping Department Worker Name Role Phone Star Betancourt MD Primary Care Provider [phone] Encounter Details Date Type Department Care Team (Late st Contact Info) Description 05/31/2024 Orders Only [facility] [place] [address] Adelso Mack MD [address] [place] [address] Stage 3b chronic kidney disease (HCC) Social History Tobacco Use Types Packs/Day [...] on file documented as of this encounter Progress Notes * Maribel Hidalgo RN BSN - 05/31/2024 11:59 PM CST Pt's 06/19/24 appt was cancelled, he is to reschedule. documented in this encounter Plan of Treatment Not on file documented as of this encounter Procedures Procedure Name Priority Date/Time Associated Diagnosis Comments HEMOGLOBIN Routine 06/12/2024 8:11 AM DIAL POLISHER Stage 3b chronic kidney disease (HCC) RENAL FUNCTION PANEL Routine 06/12/2024 8:11 AM DIAL POLISHER Stage 3b chronic kidney disease (HCC) documented in this encounter Results * (ABNORMAL) Hemoglobin (06/12/2024 8:11 AM DIAL POLISHER) Hemoglobin 10.4(L) 13.2 - 17.1 g/dL See order comments Blood specimen (specimen) Venous blood / Unknown 06/12/2024 8:11 AM DIAL POLISHER 06/12/2024 8:11 AM DIAL POLISHER Narrative Resulting Agency Comment Performing Organization Information: Site ID: Name: [facility] Address: [address] [place] [phone] Director: Israel Waters Adelso Mack MD LAB BLOOD ORDERABLES Final Resul t Gramovox L See order comments [place] [address] * (ABNORMAL) Renal function panel (06/12/2024 8:11 AM DIAL POLISHER) Glucose 278(H) 65 - 99 mg/dL See order comments Comment: Fasting reference interval For someone without known diabetes, a glucose value >125 mg/dL indicates that they may have diabetes and this should be confirmed with a follow-up test. BUN 44(H) 7 - 25 mg/dL See order comments Creatinine 2.32(H) 0.70 - 1.22 mg/dL See order comments eGFR CKD-EPI CR 2020 27(L) > OR = 60 mL/min/1.7 3m2 See order comments BUN/Creatinine Ratio 19 6 - 22 (calc) See order comments Sodium 137 135 - 146 mmol/L See order comments Potassium 5.0 3.5 - 5.3 mmol/L See order comments Chloride 105 98 - 110 mmol/L See order comments Bicarbonate (CO2) 26 20 - 32 mmol/L See order comments Calcium 8.5(L) 8.6 - 10.3 mg/dL See order comments Phosphorus 3.9 2.1 - 4.3 mg/dL See order comments Albumin 3.5(L) 3.6 - 5.1 g/dL See order comments Blood specimen (specimen) Venous blood / Unknown 06/12/2024 8:11 AM DIAL POLISHER 06/12/2024 8:11 AM DIAL POLISHER Narrative Resulting Agency Comment Performing Organization Information: Site ID: [id number] Name: [facility] Address: [address] [place] [phone] Director: Israel Waters Adelso Mack MD LAB BLOOD ORDERABLES Final Resul t Sensbeat See order comments [place] [address] documented in this encounter Visit Diagnoses Diagnosis Stage 3b chronic kidney disease (HCC) documented in this encounter Care Teams Housekeeping Department Worker Relationship Specialty Start Date End Date Star Betancourt MD [address] [place] [address] PCP - General Family Medicine 10/26/23 documented as of this encounter
--- OUTSIDE RECORDS SUMMARY | 2025-06-03 16:21 | XMS_ITS | Encounter Summary ---
Author Organization [facility] Address [address] [place] [address] Phone Care Team Providers Care Member Of The Legislative Council Name Role Phone Star Betancourt MD Primary Care Provider [phone] Encounter Details Date Type Department Care Team (Late st Contact Info) Description 10/26/2023 Documentation Only [facility] [address] [place] [address] No, Pcp Social History Tobacco Use Types Packs/Day Years Used Date Smoking Tobacco: Never Assessed Sex and Gender Information Value Date Recorded Sex Assigned at Not on file Legal Sex Male 2:00 PM EDT Gender Identity Not on file Sexual Orientation Not on file documented as of this encounter Plan of Treatment Not on file documented as of this encounter Visit Diagnoses Not on filedocumented in this encounter Care Teams Member Of The Legislative Council Relationship Specialty Start Date End Date Star Betancourt MD [address] [place] [address] PCP - General Family Medicine 10/26/23 documented as of this encounter
--- OUTSIDE RECORDS SUMMARY | 2025-06-03 16:21 | XMS_ITS | Encounter Summary ---
Author Organization [facility] Address [address] [place] [address] Phone Care Team Providers Care Confectionery Laboratory Manager Name Role Phone Star Betancourt MD Primary Care Provider [phone] Encounter Details Date Type Department Care Team (Late st Contact Info) Description 10/26/2023 Documentation Only [facility] [address] [place] [address] No, Pcp Social History Tobacco Use Types [...] on filedocumented in this encounter Care Teams Confectionery Laboratory Manager Relationship Specialty Start Date End Date Star Betancourt MD [address] [place] [address] PCP - General Family Medicine 10/26/23 documented as of this encounter
[2025-06-03 16:27] VITALS: BP 171/80; PULSE 106; RESP 18; TEMP 37.3; O2SAT 96; BMI 31.9
--- NOTE | 2025-06-03 16:42 | CRLHL7_ITS ---
For Patients: As a result of the 21st Century Cures Act, medical imaging exams and procedure reports are released immediately into your electronic medical record. You may view this report before your referring provider. If you have questions, please contact your health care provider. INDICATION: Fell out of tractor 3-4 feet onto left side. TECHNIQUE: Axial noncontrast CT cuts were performed from above the diaphragm to the below the ischial tuberosities. COMPARISON: None. FINDINGS: There is no pulmonary contusion or pneumothorax. There is no mediastinal hematoma. There are no pulmonary nodules, masses or infiltrates. There are no pleural or pericardial fluid collections. There is mild bibasilar atelectasis. There are no enlarged hilar, mediastinal or axillary lymph nodes. The thoracic inlet appears normal. There is atherosclerotic calcification within the coronary arteries. There is no free intraperitoneal air or fluid. The liver, spleen, pancreas, adrenals and kidneys appear normal. There are no enlarged retroperitoneal or mesenteric lymph nodes. There is mild colonic diverticulosis without diverticulitis. The small bowel appears normal. The appendix is not inflamed. The urinary bladder, seminal vesicles and prostate gland appear normal. There is no iliac or inguinal lymphadenopathy. There is a severe wedge compression fracture of L1 of favored to be old. There are also [id number] wedge compression fractures of T3, T4, T5 and T6 compression fractures. No other fractures are identified. There are small subcutaneous contusion overlying both hips. IMPRESSION: 1. Negative for pulmonary contusion, pneumothorax or mediastinal hematoma. 2. Coronary arterial calcification. 3. Severe L1 compression fracture favored to be chronic. There are also [id number] wedge compression fractures of T3, T4, T5 and T6 the definitely appear old. 4. Small subcutaneous contusion overlying both hips. Please note that all CT scans at this facility use dose modulation, iterative reconstruction, and/or weight-based dosing when appropriate to reduce radiation dose to as low as reasonably achievable. Dictated by Blair Lincoln MD @ 06/03/2025 5:23:00 PM (Electronically Signed)
--- NOTE | 2025-06-03 16:43 | ED.FALL ---
HPI - Fall General Chief Complaint: Fall/Minor Trauma Stated Complaint: fell off tractor, L side injury Time Seen by Provider: 06/03/25 16:21 History of Present Illness HPI Narrative: Patient is a 84-year-old gentleman who fell the last 2 steps getting off his tractor 2 days ago. He has pain in the mid axillary line on the left as well as in the upper abdomen. Patient takes a baby aspirin daily. He does not take any blood thinners. He did not hit his head and did not lose consciousness. He simply stumbled and had no palpitations. No fevers no chills no night sweats no cough no shortness a breath. Pain is moderate primarily located in the left lateral chest wall in the mid axillary line. Related Data Home Medications ?Medication ?Instructions ?Recorded ?Confirmed aspirin 81 mg tablet,delayed 81 mg PO DAILY 06/03/25 06/03/25 release (Adult Aspirin Regimen) atorvastatin 40 mg tablet 40 mg PO QPM 06/03/25 06/03/25 insulin glargine 100 unit/mL (3 38 unit subcut QPM 06/03/25 06/03/25 mL) subcutaneous pen (Lantus Solostar U-100 Insulin) metoprolol tartrate 25 mg tablet 25 mg PO BID 06/03/25 06/03/25 Allergies Allergy/AdvReac Type Severity Reaction Status Date / Time Sulfa (Sulfonamide Allergy Verified 06/03/25 16:35 Antibiotics) oxycodone (From OxyContin) AdvReac Mild hiccups Verified 06/03/25 16:35 Review of Systems Status of ROS: Reports: 10 or more systems reviewed and unremarkable except as noted in History and below Exam Narrative: Exam Narrative: EXAM GENERAL: Patient appears comfortable and well. EYES: No scleral icterus. ENT: Tympanic membranes and oropharynx normal. THYROID: no thyroid nodules or thyromegaly. LYMPH: No supraclavicular or cervical lymphadenopathy. SKIN: Visible skin seen during exam normal or with benign process only. EXT: No dependent lower extremity pedal edema. HEART: Regular rate and rhythm with no murmurs, rubs, or gallops. LUNGS: Clear to auscultation bilaterally with no crackles or wheezes. ABD: Soft, minimal tenderness in the left upper quadrant. PSYCH: Good eye contact, speech is not pressured. Chest wall is tender to palpation with minimal ecchymosis in the left mid axillary line. Const: Vital Signs, click to edit/add: Vital Signs - 24 hr 06/03/25 16:27 Temperature 99.2 F Pulse Rate [Pulse Oximeter] 106 H Respiratory Rate 18 Blood Pressure [Ri ght Upper Arm] 171/80 H Pulse Oximetry 96 Oxygen Delivery Me thod Room Air Course Course ED Course: Patient fell 2 days ago as having chest and abdominal pain. I did start the evaluation with CT chest abdomen pelvis without contrast and will follow up based on those results. Vital Signs Vital signs: Initial Vital Signs Temperature 99.2 F 06/03/25 16:27 Temperature Source Temporal Artery Scan 06/03/25 16:27 Pulse Rate 106 H 06/03/25 16:27 Respiratory Rate 18 06/03/25 16:27 Blood Pressure 171/80 H 06/03/25 16:27 Blood Pressure Mean 110 H 06/03/25 16:27 Pulse Oximetry 96 06/03/25 16:27 Oxygen Delivery Method Room Air 06/03/25 16:27 Vital Signs Temperature 99.2 F 06/03/25 16:27 Pulse Rate 106 H 06/03/25 16:27 Respiratory Rate 18 06/03/25 16:27 Blood Pressure 171/80 H 06/03/25 16:27 Pulse Oximetry 96 06/03/25 16:27 Oxygen Delivery Method Room Air 06/03/25 16:27 Temperature 99.2 F 06/03/25 16:27 Pulse Rate 106 H 06/03/25 16:27 Respiratory Rate 18 06/03/25 16:27 Blood Pressure 171/80 H 06/03/25 16:27 Pulse Oximetry 96 06/03/25 16:27 Oxygen Delivery Method Room Air 06/03/25 16:27 MDM - Fall MDM Narrative Medical decision making narrative: Patient presents 2 days after falling from the ladder on his tractor. He has pain in the left mid axillary line into the upper abdomen. Patient did do a CT of his chest abdomen pelvis. There is some old compression fractures of his vertebrae but no acute abnormalities. This time I did recommend ice and Tylenol with follow-up with primary care. No Motrin as patient is stage 4 kidney disease. Discharge Plan Discharge Clinical Impression: Contusion Patient Disposition: Home, Self-Care Condition: Stable Instructions: Chest Contusion (ED) Additional Instructions: Ice Tylenol 1000 mg 3 times a day as needed Continue current medications. Follow-up with your doctor as needed. Activity Level: No Restrictions Discharge Diet: Regular Prescriptions: No Action atorvastatin 40 mg tablet 40 mg PO QPM metoprolol tartrate 25 mg tablet 25 mg PO BID insulin glargine [Lantus Solostar U-100 Insulin] 100 unit/mL (3 mL) insulin pen 38 unit subcut QPM aspirin [Adult Aspirin Regimen] 81 mg tablet,delayed release (DR/EC) 81 mg PO DAILY Follow Up/Referrals: Star Betancourt MD [Primary Care Provider, Family Practice] Stand Alone Forms: 3 Four 5 Groupealth Info Instructions
[2025-06-03 17:56] VITALS: BP 155/63; PULSE 92; RESP 16; O2SAT 96
== END 2025-06-03 18:03 | disposition home or self-care (01) ==
PROVIDERS: Emergency Provider Internal Medicine; PCP Family Medicine
DX: S20.212A Contusion of left front wall of thorax, initial encounter (principal); Z79.82 Long term (current) use of aspirin; V84.4XXA Person injured while boarding or alighting from special agricultural vehicle, initial encounter
CPT/HCPCS: 71250; 74176; 99283; 99284